=== PATIENT | female | born 1925 | race Caucasian/White ===

== ENCOUNTER → 2017-07-29 | Outpatient (CLI) | payer OTHER ==
[~2017-07-29] MED LIST: ALTACE5 M1 PO; ASPIRIN EC81 M1 PO; LIPITOR20 MG PO; METOPROLOL SUCC25 M1; NORCO 5-325 TA1 EACH PO; PRAVACHOL40 MG PO; PRILOSEC 20 MG20 MG PO; TOPROL XL50 MG PO; ZANTAC 150MG T150 MG PO
--- NOTE | ~2017-07-29 | SLE ---
[facility] [address] [place] [address] POLYSOMNOGRAPHY STUDY Name: JENNY SCHILLING Room #: REG [facility] M..#: [id number] Admission: 07/29/17 Attend Phys: Andrew Diaz MD Discharge: Date of : [birth year] Report #: [id number] THIS REPORT FOR: //name// CC: Nisha Diaz DATE OF SERVICE: 07/31/2017 HISTORY: An 89-year-old female, height 5 feet 4 inches, weight 189 pounds. Usually goes to bed at 10, gets out of bed 7:00-7:30. Positive history of snoring, no definite daytime somnolence. [place] sleepiness scale of 4. History of TATIANNA in 2003 requiring a new study. COMMENTS: PVCs noted. Total recording time 495 minutes. Sleep period time 210 minutes. sleep efficiency 1.6% Sleep onset 133 minutes 8 minutes of stage I sleep seen Apnea hypopnea index of 0 events per sleep hour Periodic limb movement with arousal index is 0 events per sleep hour Low oxygen saturation 92%. IMPRESSION The patient was essentially awake throughout the night suggestions The patient will return for a repeat study and may consider a sleep aid or making her somewhat sleep deprived prior to study. <ELECTRONICALLY SIGNED> By: Nisha Lee MD 09/18/17 2312 [id number] 50 Nisha Lee MD /nt
== END ==
LOC: SLEEPLAB 09:54
DX: G47.33 Obstructive sleep apnea (adult) (pediatric) (principal); Z99.89 Dependence on other enabling machines and devices